=== PATIENT | male | born 1955 | race Caucasian/White ===

== ENCOUNTER → 2017-09-06 | Outpatient (CLI) | payer BC ==
[2017-09-06 10:34] LABS: HCT 47.1 % (39.0-53.0); HGB 16.3 gm/dL (13.0-17.5); MCH 30.3 pg (25.0-35.0); MCHC 34.6 g/dL (31.0-37.0); MCV 87.6 fL (80.0-100.0); Platelet Count 243 k/uL (150-450); RBC 5.37 m/uL (4.30-5.90); RDW 13.1 % (11.5-15.5); WBC 6.4 k/uL (3.8-10.6)
[2017-09-06 10:54] LABS: ALT 50 U/L (21-72); AST 28 U/L (17-59); Albumin 4.8 g/dL (3.5-5.0); Alkaline Phosphatase 73 U/L (38-126); Anion Gap 14 mmol/L; Blood Urea Nitrogen 18 mg/dL (9-20); Calcium 9.9 mg/dL (8.4-10.2); Carbon Dioxide 28 mmol/L (22-30); Chloride 101 mmol/L (98-107); Glucose 176 mg/dL (74-99); Potassium 3.9 mmol/L (3.5-5.1); Sodium 143 mmol/L (137-145); Total Bilirubin 0.8 mg/dL (0.2-1.3); Total Protein 7.9 g/dL (6.3-8.2)
[2017-09-06 11:50] LABS: Appearance,Urine Clear (Clear); Bilirubin,Urine Negative (Negative); Blood,Urine Negative (Negative); Color,Urine Light Yellow; Glucose,Urine (UA) 2+ (Negative); Ketones,Urine Negative (Negative); Leukocyte Esterase,Urine Negative (Negative); Nitrite,Urine Negative (Negative); Protein,Urine Negative (Negative); Specific Gravity,Urine 1.013 (1.001-1.035); Urobilinogen,Urine <2.0 mg/dL (<2.0)
== END | disposition home or self-care (01) ==
LOC: LABPAT 10:04
PROVIDERS: ATTEND Orthopaedic Surgery
DX: Z01.812 Encounter for preprocedural laboratory examination (principal)
CPT/HCPCS: 36415; 80053; 81003; 85027; 85610; 85730; 87070; 93005

== ENCOUNTER 2017-09-19 06:14 | Inpatient (IN) | payer BC ==
[2017-09-15 14:55] VITALS: BMI 35.5
[~2017-09-19 06:14] MED LIST: DEXAMETHASONE SOD PHOSPHATE 10 MG/ML 1 ML VIAL IV ONE; LIDOCAINE 1% 20 ML VIAL (10MG/ML) FOR IV START INTRADERMA PRN; MIDAZOLAM 2 MG/2 ML VIAL IV PRN; SCOPOLAMINE 1.5MG/72HR PATCH TRANSDERM ONE; ceFAZolin IN SWFI 2 GM/20 ML SYRINGE IVP ONE; fentaNYL (PF) 50 MCG/ML 2 ML AMP IV PRN
[2017-09-19] MEDS: LACTATED RINGERS 1,000 ML IV SCH ×3 (07:17→20:52)
[2017-09-19] MEDS ORDERED: KETOROLAC 30 MG/ML 1 ML VIAL ONE (07:57)
[2017-09-19] MEDS ORDERED: HYDROmorphone (PF) 1 MG/ML ONE (07:57)
[2017-09-19] MEDS ORDERED: fentaNYL (PF) 50 MCG/ML 2 ML AMP ONE (07:57)
[2017-09-19] MEDS ORDERED: MIDAZOLAM 2 MG/2 ML VIAL ONE (07:57)
[2017-09-19] MEDS ORDERED: PROPOFOL 10 MG/ML 20 ML VIAL IV ONE (07:57)
[2017-09-19] MEDS ORDERED: ceFAZolin 3,000 MG in SODIUM CHLORIDE 0.9% IRRIGATIO 3,000 ML IRRIGATION ONE (08:30)
[2017-09-19] MEDS ORDERED: LACTATED RINGERS 1,000 ML IV ONE (08:35)
[2017-09-19] MEDS: HYDROmorphone 1 MG/ML 1 ML SYRINGE IVP ONE ×4 (10:23→11:02)
[2017-09-19] MEDS ORDERED: HYDROcodone/APAP 5-325MG 1 EACH TAB PO PRN ×2 (10:26)
[2017-09-19] MEDS ORDERED: NA PHOS,M-B/NA PHOS,DI-BA 133 ML ENEMA RECTAL PRN (10:26)
[2017-09-19] MEDS ORDERED: HYDROmorphone 0.5 MG/0.5 ML SYRINGE IVP PRN ×3 (10:26)
[2017-09-19] MEDS ORDERED: BISACODYL 10 MG SUPP RECTAL PRN (10:26)
[2017-09-19] MEDS ORDERED: NALOXONE 0.4 MG/ML 1 ML VIAL IV PRN (10:26)
[2017-09-19] MEDS ORDERED: ONDANSETRON 4 MG/2 ML VIAL IVP PRN (10:26)
[2017-09-19] MEDS ORDERED: MAGNESIUM HYDROXIDE 2,400 MG/10 ML CUP PO PRN (10:26)
[2017-09-19] MEDS ORDERED: ACETAMINOPHEN TAB 325 MG TAB PO PRN (10:26)
[2017-09-19] MEDS ORDERED: TEMAZEPAM 15 MG CAP PO PRN (10:26)
[2017-09-19] MEDS ORDERED: HYDROcodone/APAP 7.5-325MG 1 EACH TAB PO PRN (10:29)
[2017-09-19] MEDS ORDERED: diphenhydrAMINE 50 MG/ML 1 ML VIAL IVP ONE (10:33)
--- NOTE | 2017-09-19 10:52 | XR ---
EXAMINATION TYPE: XR knee limited LT DATE OF EXAM: 09/19/2017 CLINICAL HISTORY: Left knee pain and arthritis status post total knee replacement. TECHNIQUE: Portable AP and crosstable lateral views of the left knee are obtained immediately postop eratively. COMPARISON: None FINDINGS: Metallic hardware from total left knee arthroplasty is seen and appears satisfactory in al ignment and position. There is evidence of recent surgery with diffuse subcutaneous gas and soft tis melquiades swelling noted. IMPRESSION: METALLIC HARDWARE FROM TOTAL LEFT KNEE ARTHROPLASTY IS SATISFACTORY IN ALIGNMENT.
--- NOTE | 2017-09-19 14:06 | P.CONS ---
History of Present Illness - Reason for Consult Recommendations regarding antihypertensive medications. - History of Present Illness 62-year-old pleasant gentleman admitted for elective left knee arthroplasty successfully underwent surgery patient denied any pain today patient has a high spiking that area patient denied any fever chills nausea vomiting abdominal pain patient is bit hypotensive which is expected post surgery. Patient takes couple antidepressant medications. Those will be held today we'll monitor the blood pressure. Review of Systems REVIEW OF SYSTEMS: CONSTITUTIONAL: No fever, no malaise, no fatigue. HEENT: No recent visual problems or hearing problems. Denied any sore throat. CARDIOVASCULAR: No chest pain, orthopnea, PND, no palpitations, no syncope. PULMONARY: No shortness of breath, no cough, no hemoptysis. GASTROINTESTINAL: No diarrhea, no nausea, no vomiting, no abdominal pain. Normoactive bowel sounds. NEUROLOGICAL: No headaches, no weakness, no numbness. HEMATOLOGICAL: Denies any bleeding or petechiae. GENITOURINARY: Denies any burning micturition, frequency, or urgency. MUSCULOSKELETAL/RHEUMATOLOGICAL: Denies any joint pain, swelling, or any muscle pain. ENDOCRINE: Denies any polyuria or polydipsia. The rest of the 14-point review of systems is negative. Past Medical History Past Medical History: Hyperlipidemia, Hypertension Additional Past Medical History / Comment(s): Hx. LBBB History of Any Multi-Drug Resistant Organisms: None Reported Past Surgical History: Heart Catheterization Additional Past Surgical History / Comment(s): cysts removed x3, colonoscopy Past Anesthesia/Blood Transfusion Reactions: No Reported Reaction Past Psychological History: No Psychological Hx Reported Smoking Status: Never smoker Past Alcohol Use History: Occasional Past Drug Use History: None Reported - Past Family History Father Family Medical History: Cancer Medications and Allergies Home Medications Medication Instructions Recorded Confirmed Type Ibuprofen [Motrin] 400 mg PO Q6HR PRN 09/15/17 09/19/17 History Losartan/Hydrochlorothiazide 1 tab PO DAILY 09/15/17 09/19/17 History [Losartan-Hctz 100-25 mg Tab] Lovastatin [Mevacor] 40 mg PO DAILY 09/15/17 09/19/17 History amLODIPine [Norvasc] 10 mg PO DAILY 09/15/17 09/19/17 History Allergies Allergy/AdvReac Type Severity Reaction Status Date / Time No Known Allergies Allergy Verified 09/19/17 11:29 Physical Exam Vitals: Vital Signs Temp Pulse Resp BP Pulse Ox 09/19/17 13:00 65 120/74 92 L 09/19/17 12:45 65 114/68 94 L 09/19/17 12:30 65 119/72 96 09/19/17 12:15 69 115/72 97 09/19/17 12:00 61 113/69 93 L 09/19/17 11:45 65 120/71 95 09/19/17 11:30 60 117/66 96 09/19/17 11:15 97.6 F 61 16 117/66 96 09/19/17 11:01 62 16 132/68 96 09/19/17 10:46 62 16 136/65 94 L 09/19/17 10:30 59 L 16 113/59 95 09/19/17 10:22 97.1 F L 60 16 115/64 92 L 09/19/17 07:12 97.9 F 93 16 137/89 96 Intake and Output 09/18/17 09/19/17 09/19/17 22:59 06:59 14:59 Intake Total 2351 Output Total 100 Balance 2251 Intake: IV 1701 Oral 650 Output: Estimated Blood Loss 100 Other: Weight 115.666 kg PHYSICAL EXAMINATION: GENERAL: The patient is alert and oriented x3, not in any acute distress. Well developed, well nourished. HEENT: Pupils are round and equally reacting to light. EOMI. No scleral icterus. No conjunctival pallor. Normocephalic, atraumatic. No pharyngeal erythema. No thyromegaly. CARDIOVASCULAR: S1 and S2 present. No murmurs, rubs, or gallops. PULMONARY: Chest is clear to auscultation, no wheezing or crackles. ABDOMEN: Soft, nontender, nondistended, normoactive bowel sounds. No palpable organomegaly. MUSCULOSKELETAL: Deferred to orthopedic surgery EXTREMITIES: No cyanosis, clubbing, or pedal edema. NEUROLOGICAL: Gross neurological examination did not reveal any focal deficits. SKIN: No rashes. Assessment and Plan Plan: -Hypertension: Patient has postoperative hypotension: Hold off on antidepressant medication -Hyperlipidemia -Left knee arthroplasty pain management and DVT prophylaxis as per primary service.
[2017-09-19] MEDS: HYDROcodone/APAP 7.5-325MG 1 EACH TAB PO PRN (14:42)
[2017-09-19] MEDS: hydrOXYzine PAMOATE 25 MG CAP PO PRN (14:43)
[2017-09-19] MEDS: ceFAZolin IN SWFI 2 GM/20 ML SYRINGE IVP SCH (15:01)
[2017-09-19] MEDS ORDERED: WARFARIN 5 MG TAB PO ONE (18:00)
[2017-09-19] MEDS ORDERED: SENNOSIDES-DOCUSATE SODIUM 1 EACH TAB PO SCH (21:00)
[2017-09-20] MEDS: ceFAZolin IN SWFI 2 GM/20 ML SYRINGE IVP SCH (00:32)
[2017-09-20] MEDS: LACTATED RINGERS 1,000 ML IV SCH ×2 (04:39→05:34)
[2017-09-20] MEDS: hydrOXYzine PAMOATE 25 MG CAP PO PRN (07:05)
[2017-09-20] MEDS: HYDROcodone/APAP 7.5-325MG 1 EACH TAB PO PRN (07:06)
[2017-09-20 07:15] LABS: INR 1.4 (<1.2)
[2017-09-20 07:16] LABS: Prothrombin Time 12.9 sec (9.0-12.0)
[2017-09-20 07:22] VITALS: BP 136/75; PULSE 83; RESP 18; TEMP 98.6
[2017-09-20 07:28] LABS: Basophils % (A) 0 %; Eosinophils % (A) 0 %; HCT 34.7 % (39.0-53.0); Lymphocytes # (A) 1.6 k/uL (1.0-4.8); Lymphocytes % (A) 13 %; MCH 30.4 pg (25.0-35.0); MCHC 34.7 g/dL (31.0-37.0); MCV 87.6 fL (80.0-100.0); Mean Platelet Volume 7.6; Monocytes # (A) 0.9 k/uL (0-1.0); Monocytes % (A) 8 %; Neutrophils % (A) 77 %; Platelet Count 188 k/uL (150-450); RBC 3.96 m/uL (4.30-5.90); RDW 13.1 % (11.5-15.5); WBC 11.6 k/uL (3.8-10.6)
--- NOTE | 2017-09-20 08:50 | P.DS ---
Providers Date of admission: 09/19/17 06:14 Expected date of discharge: 09/20/17 Attending physician: Domingo Cruz Consults: 09/19/17 10:26 Consult Physician Routine Consulting Provider: Edgar Hwang Consult Reason/Comments: medical management Do you want consulting provider notified?: Yes 09/19/17 11:24 Consult Physician Routine Consulting Provider: Chi Marlow Consult Reason/Comments: medical management Do you want consulting provider notified?: Yes Primary care physician: Edgar Hwang - Discharge Diagnosis(es) (1) Primary localized osteoarthritis of left knee Current Visit: Yes Status: Acute (2) Status post total left knee replacement Current Visit: Yes Status: Acute Hospital Course: This is a pleasant 62-year-old male last seen in our office with complaints of left knee pain. Patient has known history of degenerative arthritis of the left knee and presented to discuss options. After discussion and consideration , the patient elected to proceed with a left total knee arthroplasty. Patient was seen preoperatively, and medically cleared for surgery by Dr. Hwang. Patient was admitted to [facility] underwent left total knee arthroplasty on 09/19/2017 with . The procedure was performed without complications or sequelae. The patient is seen and evaluated at bedside today. Pain is well-controlled. Patient has no new complaints today and denies any fevers, chills, nausea, vomiting, or shortness of breath. Vital signs are stable. Dressing is clean dry and intact. Incision looks fine with no erythema or active drainage. Calf is soft and nontender. Patient has full foot and ankle motion without difficulty. Patient's left lower extremity is neurovascularly intact. The patient is orthopedically stable for discharge today. Pertinent Studies: Laboratory Tests 09/20/17 09/20/17 06:30 06:30 WBC 11.6 H RBC 3.96 L Hgb 12.0 L D Hct 34.7 L Neutrophils # 9.0 H PT 12.9 H INR 1.4 H Patient Condition at Discharge: Stable Plan - Discharge Summary Discharge Rx Participant: No New Discharge Prescriptions: New Aspirin 325 mg PO DAILY #30 tab Sennosides-Docusate Sodium [Senokot-S] 2 tab PO DAILY #30 tablet Warfarin [Coumadin] 2.5 mg PO DIRECTED #30 tab Hydrocodone/Acetaminophen [Cortez 7.5-325] 1 - 2 tab PO Q4-6H PRN 7 Days #50 tab PRN Reason: Pain No Action amLODIPine [Norvasc] 10 mg PO DAILY Lovastatin [Mevacor] 40 mg PO DAILY Ibuprofen [Motrin] 400 mg PO Q6HR PRN PRN Reason: Pain Losartan/Hydrochlorothiazide [Losartan-Hctz 100-25 mg Tab] 1 tab PO DAILY Discharge Medication List Ibuprofen [Motrin] 400 mg PO Q6HR PRN 09/15/17 [History] Losartan/Hydrochlorothiazide [Losartan-Hctz 100-25 mg Tab] 1 tab PO DAILY [History] Lovastatin [Mevacor] 40 mg PO DAILY 09/15/17 [History] amLODIPine [Norvasc] 10 mg PO DAILY 09/15/17 [History] Aspirin 325 mg PO DAILY #30 tab 09/20/17 [Rx] Hydrocodone/Acetaminophen [Cortez 7.5-325] 1 - 2 tab PO Q4-6H PRN 7 Days #50 tab 09/20/17 [Rx] Sennosides-Docusate Sodium [Senokot-S] 2 tab PO DAILY #30 tablet 09/20/17 [Rx] Warfarin [Coumadin] 2.5 mg PO DIRECTED #30 tab 09/20/17 [Rx] Follow up Appointment(s)/Referral(s): Domingo Cruz DO [Doctor of Osteopathic Medicine] - 2 Weeks Ambulatory/Diagnostic Orders: Continuous Passive Motion (CPM) Machine [DME.AMB1] Time Frame: 3 Weeks, Location : Determined By Patient Activity/Diet/Wound Care/Special Instructions: Weightbearing as tolerated with a walker Coumadin 2.5 mg 1 by mouth every other day for 7 days then take Aspirin 325mg daily for 1 month CPM 5-6 hours daily-Start CPM at 45 degrees then increase by 5 degrees every time on CPM as patient tolerates. Maximum total of 15 degrees every 24 hours. May shower in 2 days if no drainage from incision Keep incision clean and dry Call [facility] at with questions or concerns Discharge Disposition: HOME WITH HOME HEALTH SERVICES
[2017-09-20] MEDS ORDERED: ATORVASTATIN 10 MG TAB PO SCH (09:00)
--- NOTE | 2017-09-20 09:48 | OP ---
OPERATIVE REPORT DATE OF SERVICE: 09/08/2017 SURGEON: Domingo Cruz DO HYDRAULIC TECHNICIAN: Alize Mckeon NP. PREOPERATIVE DIAGNOSIS: Severe degenerative joint disease left knee with severe varus deformity. POSTOPERATIVE DIAGNOSIS: Severe degenerative joint disease left knee with severe varus deformity. OPERATION: Left total knee replacement arthroplasty utilizing Silva Person[employer] press-fit component. ESTIMATED BLOOD LOSS: DESCRIPTION OF PROCEDURE: The patient was taken to the operative suite and placed in supine position. Spinal anesthesia was performed by the department of anesthesiology. A Betadine prep was carried out from the mid thigh to mid calf. Sterile drapes were applied in the usual manner. The pneumatic tourniquet was inflated to 350 mmHg. A medial parapatellar incision was developed. The medical retinaculum was incised as well as the synovium. The patella was everted and dislocated laterally and brought in flexion and held in leg suero. An intramedullary cutting guide was into the . The size 9 left was selected. Appropriate cuts were developed and provisionary component was impacted in position and component bone interface alignment. The tibial cutting guide was brought in position, aligned. Appropriate tibial wafer cut was developed. The tibial wafer was removed and measured. The medial and lateral menisci in their entirety. The size 7 metal tray was selected and placed in position and that was inserted provisionary spacer . Alignment and movement of tibial was maintained. Tibial tray was marked for . The appropriate peg hole was initiated in preparation for the final component. With the patella everted and dislocated laterally, . The patella was then shaped with a shelving planer and a size 35 mm patellar component was selected. The appropriate peg holes were then initiated in preparation for the final component. All provisionary components were then checked for position and stability and lateral retinacular release was carried out and allowing more position of the patella. in full flexion all provisionary components were removed. The Pulsavac antibiotic solution was utilized in preparation for the final component. The final size 7 trabecular metal peg was placed into the hole of the tibia and . The final size 9 left femoral component press-fit component was impacted into position and alignment maintained. The final component size 35 mm was placed in predrilled peg hole of the patella and impacted. The final 12 mm polyethylene was inserted and locked into the tibial tray. The knee was checked again stability maintained. The knee was placed in flexion and area was irrigated with Pulsavac antibiotic solution. The superficial bleeding was controlled with electrocautery. The medial retinaculum and subcutaneous tissue approximated with #3 Vicryl suture horizontal mattress fashion. A #2 Quill suture was utilized in reinforcing the retinaculum in a running fashion. A 2-0 Vicryl suture was utilized for the subcutaneous closure. The 3-0 Quill was utilized in subcuticular closure. Dermabond was utilized to seal the wound and a sterile dressing with a was applied. The patient was transferred to the recovery room in satisfactory postop condition. GROSS PATHOLOGY: There is severe tricompartment degenerative joint disease of the left knee with varus deformity. The osteophyte was only approached in the tibial cut and there was no evidence of at this time following removal of the small osteophyte . MMODL / IJN: [id number] /
--- NOTE | 2017-09-20 11:36 | P.PN ---
Subjective No overnight events and patient is being discharged today. Patient blood pressure is within normal limits in spite of holding all his activities medications because of which I counseled him regarding the appropriate way to check blood pressure at home to take to the PCPs office. Patient was asked to continue losartan hydrocodone thiazide combination hold off on amlodipine on the low he is evaluated by primary care physician. Objective - Vital Signs Vital signs: Vital Signs Temp 98.6 F 09/20/17 07:00 Pulse 83 09/20/17 07:00 Resp 18 09/20/17 07:00 BP 136/75 09/20/17 07:00 Pulse Ox 97 09/20/17 07:00 Intake & Output 09/19/17 09/20/17 09/20/17 18:59 06:59 18:59 Intake Total 2587 1680 Output Total 650 701 Balance 1937 979 Weight 115.666 kg 115.666 kg Intake: IV 1701 Intake, IV Titration 1200 Amount Lactated Ringers 1,000 ml 1200 @ 100 mls/hr IV .Q10H LAURIE Rx#:[id number] Oral 886 480 Output: Urine 550 701 Estimated Blood Loss 100 Other: Voiding Method Toilet # Voids 1 - Exam PHYSICAL EXAMINATION: GENERAL: The patient is alert and oriented x3, not in any acute distress. Well developed, well nourished. HEENT: Pupils are round and equally reacting to light. EOMI. No scleral icterus. No conjunctival pallor. Normocephalic, atraumatic. No pharyngeal erythema. No thyromegaly. CARDIOVASCULAR: S1 and S2 present. No murmurs, rubs, or gallops. PULMONARY: Chest is clear to auscultation, no wheezing or crackles. ABDOMEN: Soft, nontender, nondistended, normoactive bowel sounds. No palpable organomegaly. MUSCULOSKELETAL: Deferred to arthritic surgery EXTREMITIES: No cyanosis, clubbing, or pedal edema. NEUROLOGICAL: Gross neurological examination did not reveal any focal deficits. SKIN: No rashes. - Labs CBC & Chem 7: 09/20/17 06:30 Labs: Abnormal Lab Results - Last 24 Hours (Table) 09/20/17 09/20/17 Range/Units 06:30 06:30 WBC 11.6 H (3.8-10.6) k/uL RBC 3.96 L (4.30-5.90) m/uL Hgb 12.0 L D (13.0-17.5) gm/dL Hct 34.7 L (39.0-53.0) % Neutrophils # 9.0 H (1.3-7.7) k/uL PT 12.9 H (9.0-12.0) sec INR 1.4 H (<1.2) Assessment and Plan Plan: -Hypertension: Management as mentioned in the interval history -Hyperlipidemia -Left knee arthroplasty pain management and DVT prophylaxis as per primary service.
[2017-09-20] MEDS ORDERED: WARFARIN 5 MG TAB PO ONE (18:00)
== END 2017-09-20 11:10 | disposition home health service (06) | DRG 470 ==
LOC: 2ORMAIN 06:14 → 3SUR 10:29
PROVIDERS: ADMIT Orthopaedic Surgery; ATTEND Orthopaedic Surgery
PROC: 0SRD0JA Replacement of Left Knee Joint with Synthetic Substitute, Uncemented, Open Approach (ICD-10-PCS; principal; 2017-09-19 08:00)
DX: M17.0 Bilateral primary osteoarthritis of knee (principal); E78.5 Hyperlipidemia, unspecified; M21.162 Varus deformity, not elsewhere classified, left knee; M23.304 Other meniscus derangements, unspecified medial meniscus, left knee; M23.331 Other meniscus derangements, other medial meniscus, right knee; I10 Essential (primary) hypertension; I44.7 Left bundle-branch block, unspecified; Z79.899 Other long term (current) drug therapy; Z82.49 Family history of ischemic heart disease and other diseases of the circulatory system
CPT/HCPCS: 85025; 85610; 88300